=== PATIENT | male | born 1965 | race African-American/Black ===

== ENCOUNTER 2019-02-16 20:01 | Inpatient (IN) ==
[2019-02-16] MEDS ORDERED: ACETAMINOPHEN 325 MG TABLET PO PRN (21:39)
[2019-02-16] MEDS ORDERED: ONDANSETRON 4 MG/2 ML VIAL IV PRN (21:39)
[2019-02-16 21:50] LABS: Basophils % 0.2 % (0.0-0.8); Eosinophils % 0.5 % (0.00-10.9); Hematocrit 43.6 VOL% (42.0-52.0); Hemoglobin 15.4 GM/DL (14.0-18.0); Immature Granulocytes % 0.5 %; Immature Granulocytes Absolute 0.03 #; Lymphocytes # 1.7 10*3/uL (1.4-4.0); Lymphocytes % 25.5 % (21.2-54.2); Mean Corpuscular HGB Conc 35.3 GM/DL (32-36); Mean Platelet Volume 9.3 FL (9.6-12.0); Neutrophils % 62.3 % (38.7-73.9); Platelet Count 313 T/CUMM (130-400); Red Blood Count 5.52 MC/CUMM (3.8-5.5); Red Cell Distribution Width 13.1 % (9.3-17.3); White Blood Count 6.5 T/CUMM (4-12)
[2019-02-16 22:16] LABS: Osmolality,Calculated 282.3 MOS/KG (273-304)
[2019-02-16 22:24] LABS: Calcium 9.1 MG/DL (8.5-10.1)
[2019-02-16] MEDS: LACTATED RINGERS 1,000 ML IV SCH (23:40)
[2019-02-17] MEDS: HYDROmorphone 2 MG/1 ML VIAL IV PRN ×2 (00:25→21:31)
[2019-02-17] MEDS ORDERED: FAMOTIDINE 20 MG TABLET PO ONE (10:01)
[2019-02-17] MEDS: PANTOPRAZOLE 40 MG TABLET PO SCH (10:11)
[2019-02-17] MEDS: LACTATED RINGERS 1,000 ML IV SCH ×3 (10:17→21:30)
[2019-02-17] MEDS ORDERED: BUPIVACAINE 0.25% /EPI 10 ML VIAL ONE (11:32)
[2019-02-17] MEDS ORDERED: LIDOCAINE MPF 1% /EPI 30 ML VIAL ONE (11:32)
[2019-02-17] MEDS ORDERED: ceFAZolin 1,000 MG VIAL ONE (11:43)
[2019-02-17] MEDS ORDERED: HYDROmorphone 2 MG/1 ML VIAL IV PRN (12:00)
[2019-02-17] MEDS ORDERED: ONDANSETRON 4 MG/2 ML VIAL IV PRN (12:00)
[2019-02-17] MEDS ORDERED: hydrALAZINE 20 MG/1 ML VIAL IV ONE (12:42)
[2019-02-17] MEDS ORDERED: hydrALAZINE 20 MG/1 ML VIAL ONE (12:42)
[2019-02-17] MEDS ORDERED: PROPOFOL 200 MG/20 ML VIAL IV ONE (12:43)
[2019-02-17] MEDS ORDERED: LIDOCAINE 2% 5 ML VIAL ONE (12:43)
[2019-02-17] MEDS ORDERED: KETOROLAC 30 MG/1 ML VIAL ONE (12:44)
[2019-02-17] MEDS ORDERED: MIDAZOLAM 2 MG/2 ML VIAL ONE (12:44)
[2019-02-17] MEDS ORDERED: GLYCOPYRROLATE 0.4 MG/2 ML VIAL ONE (12:44)
[2019-02-17] MEDS ORDERED: ONDANSETRON 4 MG/2 ML VIAL ONE (12:44)
[2019-02-17] MEDS ORDERED: LABETALOL 100 MG/20 ML VIAL IV ONE (12:44)
[2019-02-17] MEDS ORDERED: SEVOFLURANE 1 UNIT/15 MINUTE INH ONE (12:44)
[2019-02-17] MEDS ORDERED: DEXAMETHASONE 4 MG/1 ML VIAL ONE (12:44)
[2019-02-17] MEDS ORDERED: HYDROmorphone 2 MG/1 ML VIAL ONE (12:44)
[2019-02-18] MEDS: LACTATED RINGERS 1,000 ML IV SCH (05:11)
[2019-02-18 08:29] VITALS: BP 123/74
[2019-02-18] MEDS: PANTOPRAZOLE 40 MG TABLET PO SCH (08:44)
== END 2019-02-18 10:30 | disposition home or self-care (01) | DRG 352 ==
LOC: N.ED 20:01 → N.EDINP 21:39 → N.3E 22:19
PROVIDERS: ADMIT Surgery; ATTEND Surgery